=== PATIENT | female | born 1950 | race Caucasian/White ===

== ENCOUNTER 2018-04-05 09:17 | Emergency (ER) | payer SELFPAY ==
[~2018-04-05] VITALS: Ht 162.6 cm; Wt 56.0 kg
[2018-04-05] MEDS ORDERED: IBUPROFEN 400MG TABLET PO ONE (11:30)
[2018-04-05 12:48] VITALS: BP 138/70
== END 2018-04-05 12:49 | disposition home or self-care (01) ==
LOC: ER 09:48
DX: S20.212A Contusion of left front wall of thorax, initial encounter (principal); S40.021A Contusion of right upper arm, initial encounter; S80.11XA Contusion of right lower leg, initial encounter; I10 Essential (primary) hypertension; W22.8XXA Striking against or struck by other objects, initial encounter; Y93.89 Activity, other specified; Y92.89 Other specified places as the place of occurrence of the external cause; Y99.8 Other external cause status
CPT/HCPCS: 71045; 73090; 73590; 93005; 99284